=== PATIENT | male | born 1940 | race Caucasian/White ===

== ENCOUNTER 2019-04-06 09:20 | Outpatient (CLI) | payer MEDICARE, OTHER, SELFPAY ==
--- NOTE | 2019-04-06 09:36 | CT_ITS ---
WS: [id number] CTA THORACIC TECHNIQUE: Contrast enhanced CTA of the thoracic aorta with coronal and sagittal reformatted images a nd maximum intensity projection (MIP) images. CLINICAL INFORMATION: ASCENDING AORTIC ANEURYSM COMPARISON: CTA thoracic aorta and 09 24, DLP: 1568.[address] scans at [facility] use at least one of these dose optimization techniques: automat ed exposure control; mA and/or kV adjustment per patient size (includes targeted exams where dose is matched to clinical indication); or iterative reconstruction. FINDINGS: Stable ascending thoracic aortic aneurysm measuring 4.3 cm in maximum dimension. Normal aortic arch. Normal caliber descending thoracic aorta. Mild aortic calcification. No evidence of dissection. Coron mark calcification. No mediastinal or hilar lymphadenopathy. Small noncalcified nodule in the right up per lobe fissure measuring 5 mm stable since 2009. Small esophageal hiatal hernia. Adrenal glands are normal. Celiac and superior mesenteric artery orig ins are patent. Calcified granuloma left lung base. Chronic emphysematous changes. CT/CT angio chest 16778 IMPRESSION: 1. Stable ascending thoracic aortic aneurysm measuring 4.3 cm. 2. Normal aortic arch and descending thoracic aorta are stable. 3. Stable small esophageal hiatal hernia.
[2019-04-06 10:04] LABS: Blood Urea Nitrogen 14 mg/dL (8-23)
[2019-04-06] MEDS: iohexol 350 mg/mL 100 mL Btl IV (10:16)
== END 2019-04-06 09:21 | disposition home or self-care (01) ==
PROVIDERS: Radiology Neuroradiology; Family Provider Internal Medicine; PCP Internal Medicine; Visit Provider Internal Medicine Cardiovascular Disease
DX: I71.2 Thoracic aortic aneurysm, without rupture (principal); K44.9 Diaphragmatic hernia without obstruction or gangrene
CPT/HCPCS: 71275; 82565; 84520; Q9967

== ENCOUNTER 2020-07-25 08:55 | Outpatient (CLI) | payer MEDICARE, OTHER, SELFPAY ==
--- NOTE | 2020-07-25 09:30 | CT_ITS ---
WS: [id number] CTA of the abdominal aorta. Additional two-dimensional coronal and sagittal reconstruction was perfor med. MIP images were also performed. 07/25/2020 Clinical Data: I71.4 - Abdominal aortic aneurysm, without rupture Comparison: None. DLP: 850.91 mGy-cm All CT scans at [facility] use at least one of these dose optimization techniques: automat ed exposure control; mA and/or kV adjustment per patient size (includes targeted exams where dose is matched to clinical indication); or iterative reconstruction. Findings: Vascular: The abdominal aorta is normal in size with calcification of the wall. No aneurysm is seen. The renal arteries, celiac artery, SMA and [place] are normal. The common iliac arteries branch normally from the a poonam. Abdominal findings: The lungs show no nodules, masses or effusions. There is a large hiatal hernia. The liver, gallbladde r, spleen, and adrenal glands are normal. The kidneys show equal bilateral contrast excretion with a posterior left renal cortical cyst. No renal masses, hydronephrosis or calculi are seen. The stomach, small bowel and visualized colon show no abnormalities. No appendicitis is seen. No abscess, adenopa thy, ascites, mass, obstruction or free air is noted. The lumbar vertebral bodies show degenerative c hange and degenerative disc disease. CT/CT angio abdomen [id number] Impression: 1. Atherosclerotic change of the abdominal aorta and its numerous branches with out an aneurysm. 2. Negative for acute intra-abdominal abnormalities.
[2020-07-25 09:40] LABS: Blood Urea Nitrogen 15 mg/dL (8-23)
[2020-07-25] MEDS: iohexol 350 mg/mL 100 mL Btl IV (10:13)
== END 2020-07-25 08:56 | disposition home or self-care (01) ==
LOC: RADWPI 08:59
PROVIDERS: Family Provider Internal Medicine; PCP Internal Medicine; Visit Provider Internal Medicine
DX: I71.4 Abdominal aortic aneurysm, without rupture (principal)
CPT/HCPCS: 74175; 82565; 84520; Q9967